=== PATIENT | female | born 1940 | race Caucasian/White ===

== ENCOUNTER 2020-11-15 21:08 | Emergency (ER) | payer MEDICARE, BC ==
[~2020-11-15] VITALS: Ht 180.3 cm; Wt 87.7 kg
--- NOTE | 2020-11-15 22:44 | NUR ---
Kristopher ([facility]) [phone]
[2020-11-15] MEDS ORDERED: ACETAMINOPHEN 500 MG TABLET ONE (23:19)
[2020-11-15] MEDS ORDERED: PLEASE ENTER ALLERGIES MC SCH (23:30)
[2020-11-15] MEDS ORDERED: ACETAMINOPHEN 500 MG TABLET PO ONE (23:30)
[2020-11-16 00:33] VITALS: BP 207/101
[2020-11-16] MEDS ORDERED: LISINOPRIL 20 MG TABLET ONE (00:38)
--- NOTE | 2020-11-16 00:59 | NUR ---
Patient and spouse given discharge instructions and they have confirmed that they understand the instructions. Patient ambulatory with steady gait, to d/c desk via wheelchair. NAD, all questions answered appropriately, denies additional needs at this time. No personal belongings left in room after discharge.
[2020-11-16] MEDS ORDERED: LISINOPRIL 20 MG TABLET PO ONE (01:00)
== END 2020-11-16 01:01 | disposition home or self-care (01) ==
LOC: ED 21:49
DX: S30.0XXA Contusion of lower back and pelvis, initial encounter (principal); S70.01XA Contusion of right hip, initial encounter; I10 Essential (primary) hypertension; E11.9 Type 2 diabetes mellitus without complications; W01.0XXA Fall on same level from slipping, tripping and stumbling without subsequent striking against object, initial encounter; Y93.89 Activity, other specified; Y92.009 Unspecified place in unspecified non-institutional (private) residence as the place of occurrence of the external cause; Y99.8 Other external cause status
CPT/HCPCS: 72192; 99284